=== PATIENT | male | born 1980 | race Caucasian/White ===

== ENCOUNTER 2019-03-31 00:34 | Emergency (ER) | payer SELFPAY ==
[~2019-03-31] VITALS: Ht 170.2 cm; Wt 69.0 kg
[2019-03-31] MEDS ORDERED: TETANUS, DIPHTHERIA, PERTUSSIS VAC/PF 0.5ML (>7YR OLD) IM ONE (02:15)
[2019-03-31] MEDS ORDERED: LIDOCAINE HCL/EPINEPHRINE 1%-EPI 1:100,000 20 ML VIAL INFIL ONE (02:15)
[2019-03-31] MEDS ORDERED: ACETAMINOPHEN 325MG TABLET PO ONE (02:15)
[2019-03-31 03:28] VITALS: BP 133/74
== END 2019-03-31 03:32 | disposition home or self-care (01) ==
LOC: ER 00:34
DX: S01.01XA Laceration without foreign body of scalp, initial encounter (principal); Y00.XXXA Assault by blunt object, initial encounter; Y93.01 Activity, walking, marching and hiking; Y92.480 Sidewalk as the place of occurrence of the external cause; Z23 Encounter for immunization
CPT/HCPCS: 12002; 90471; 90715; 99283; J3490

== ENCOUNTER 2019-04-09 19:01 | Emergency (ER) | payer SELFPAY ==
[~2019-04-09] VITALS: Ht 157.5 cm; Wt 59.0 kg
[2019-04-10 00:14] VITALS: BP 193/95
== END 2019-04-10 05:24 | disposition home or self-care (01) ==
LOC: ER 19:01
DX: S01.91XD Laceration without foreign body of unspecified part of head, subsequent encounter (principal); I10 Essential (primary) hypertension; X58.XXXD Exposure to other specified factors, subsequent encounter
CPT/HCPCS: 99283; Z7610